=== PATIENT | male | born 1975 | race Caucasian/White ===

== ENCOUNTER 2024-11-13 10:34 | Emergency (ER) | payer OTHER, SELFPAY ==
[2024-11-13 10:37] VITALS: BP 144/77; PULSE 78; TEMP 36.4; O2SAT 97; BMI 32.1
[2024-11-13] MEDS: LIDOCAINE HCL 1% 100 MG/10 ML MDV INJ (10:58)
[2024-11-13] MEDS: ADACEL DIPH,PERTUSS(ACELL),TET VAC/PF 0.5 ML ADULT SYRINGE IM (10:58)
--- NOTE | 2024-11-13 11:16 | ED.GENADUL1 ---
HPI HPI - General Adult General Chief complaint: Wound/Laceration Stated complaint: LACERATION Time Seen by Provider: 11/13/24 10:35 Source: patient Mode of arrival: walk-in Limitations: no limitations History of Present Illness HPI narrative: 49-year-old male presents to the emergency department for chief complaint of laceration. Just before coming into the emergency department he hit his upper forehead on a piece of sheet metal near his chicken coop. It has been a long time since he has had a tetanus shot and this was updated today. No other wound was sustained. There was some bleeding which was controlled with pressure and no LOC occurred. Related Data Home Medications ?Medication ?Instructions ?Recorded ?Confirmed methylprednisolone 4 mg tablets in 4 mg PO DAILY 11/13/24 11/13/24 a dose pack (Medrol (Joel)) Allergies Allergy/AdvReac Type Severity Reaction Status Date / Time No Known Drug Allergies Allergy Verified 11/13/24 10:37 Opioid HPI Opioid Management Most Recent Opioid Data: Last Pain Scale 4 Today, 10:37 Review of Systems ROS Narrative A ten point review of systems is negative except as noted above. PFSH PFSH Social History Little interest or pleasure in doing things: not at all Feeling down, depressed, or hopeless: not at all Exam Narrative Exam Narrative: Nurses note and vital signs reviewed and patient is not hypoxic. General: The patient appears well and in no apparent distress. Patient is resting comfortably on cart. Skin: Warm, dry, no pallor noted. There is no rash noted. Head: Normocephalic, vertically oriented laceration is present on his upper forehead just to the right of midline and ends near the hairline. It is 2 and half centimeters in length. Eye: Normal conjunctiva, no drainage Ears, Nose, Mouth, and Throat: oral mucosa is moist. Nares patent. Cardiovascular: Regular Rate and Rhythm Respiratory: Patient is in no distress, no accessory muscle use Back: non-tender GI: Soft and nontender Musculoskeletal: The patient has no evidence of calf tenderness, no pitting edema, symmetrical pulses noted bilaterally Neurological: A&O, normal speech Psychiatric: Cooperative Constitutional Vital Signs, click to edit/add: Last Vital Signs Temp 97.5 F L 11/13/24 10:37 Pulse 78 11/13/24 10:37 Resp 16 11/13/24 10:37 BP 144/77 H 11/13/24 10:37 Pulse Ox 97 11/13/24 10:37 O2 Del Method Room Air 11/13/24 10:37 Course Vital Signs Vital signs: Vital Signs Temperature 97.5 F L 11/13/24 10:37 Pulse Rate 78 11/13/24 10:37 Respiratory Rate 16 11/13/24 10:37 Blood Pressure 144/77 H 11/13/24 10:37 Pulse Oximetry 97 11/13/24 10:37 Oxygen Delivery Method Room Air 11/13/24 10:37 Temperature 97.5 F L 11/13/24 10:37 Pulse Rate 78 11/13/24 10:37 Respiratory Rate 16 11/13/24 10:37 Blood Pressure 144/77 H 11/13/24 10:37 Pulse Oximetry 97 11/13/24 10:37 Oxygen Delivery Method Room Air 11/13/24 10:37 Medical Decision Making MDM Narrative Medical decision making narrative: The following procedure was performed by me. Local infiltration was carried out with 1% lidocaine without epinephrine resulting in complete skin anesthesia. The area was prepped with Betadine x 3 and draped sterilely. It was explored for foreign bodies and none were found and then closed with four 5-0 Ethilon sutures resulting in good skin reapproximation and no complications. The most superior aspect of the wound is quite superficial and does not require suture. He tolerated the procedure well. Differential Diagnosis Differential Diagnosis: Laceration, need for tetanus immunization Discharge Plan Discharge Chief Complaint: Wound/Laceration Clinical Impression: Laceration Patient Disposition: Home, Self-Care Time of Disposition Decision: 11:16 Condition: Good Mode of Transportation: Private Vehicle Prescriptions / Home Meds: No Action methylprednisolone [Medrol (Joel)] 4 mg tablets,dose pack 4 mg PO DAILY Print Language: Kittitian Instructions: Laceration (ED) Additional Instructions: Sutures to be removed in 5 days Referrals: MASSIEL MARTIN [Primary Care Provider, Family Practice] - 1 week
== END 2024-11-13 11:33 | disposition home or self-care (01) ==
PROVIDERS: Emergency Provider Emergency Medicine; PCP Family Medicine
DX: S01.81XA Laceration without foreign body of other part of head, initial encounter (principal); W26.8XXA Contact with other sharp object(s), not elsewhere classified, initial encounter; Z23 Encounter for immunization
CPT/HCPCS: 12011; 90471; 90715; 99283